=== PATIENT | male | born 1970 | race Two or more races ===

== ENCOUNTER → 2021-11-06 | Outpatient (CLI) | payer OTHER ==
--- NOTE | 2021-11-06 15:15 | RAD ---
EXAM: XR LUMBAR SPINE 2-3V 11/06/2021 12:15 PM CLINICAL INDICATION: Low back pain COMPARISON: None TECHNIQUE: AP and lateral views of the lumbar spine FINDINGS: There are 6 lumbar vertebral bodies with partial sacralization of L6 on the right. Using t his numbering system, there is mild disc space narrowing at L5-L6 with anterior osteophytes. The hailey ining disc spaces are maintained. No acute fracture or malalignment. IMPRESSION: 1. 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 2. Mild degenerative disc disease at L5-L6. Electronically signed by: Allyssa Kong MD (11/06/2021 3:12 PM) [id number]
== END ==
LOC: RAD 11:42
PROVIDERS: ATTEND Family Medicine
DX: M51.36 Other intervertebral disc degeneration, lumbar region (principal); M48.061 Spinal stenosis, lumbar region without neurogenic claudication; M25.78 Osteophyte, vertebrae; M43.27 Fusion of spine, lumbosacral region; M43.8X7 Other specified deforming dorsopathies, lumbosacral region
CPT/HCPCS: 72100